=== PATIENT | female | born 1940 | race Caucasian/White ===

== ENCOUNTER 2018-04-18 11:30 | Inpatient (IN) ==
[2018-04-18 12:29] LABS: Albumin 4.1 G/DL (3.4-5.0); Bilirubin,Total 6.8 MG/DL (0.2-1.0); Calcium 9.1 MG/DL (8.5-10.1); Osmolality,Calculated 282.7 MOS/KG (273-304); Potassium 4.7 MMOL/L (3.5-5.1); Total Protein 7.2 G/DL (6.4-8.3)
[2018-04-18 14:12] LABS: Basophils # 0.1 10*3/uL (0.0-0.2); Basophils % 0.5 % (0.0-0.8); Eosinophils # 0.1 10*3/uL (0.0-0.87); Eosinophils % 0.9 % (0.00-10.9); Hemoglobin 6.5 GM/DL (12.0-16.0); Immature Granulocytes % 1.3 %; Immature Granulocytes Absolute 0.17 #; Lymphocytes # 1.8 10*3/uL (1.4-4.0); Lymphocytes % 13.1 % (21.3-54.2); Mean Corpuscular HGB Conc 38.5 GM/DL (32-36); Mean Corpuscular Hemoglobin 45 PG (27-34); Mean Corpuscular Volume 117.4 FL (87-102); Mean Platelet Volume 10.9 FL (9.6-12.0); Monocytes % 7.5 % (1.7-12.7); NRBC # 0.09 10*3/uL; Neutrophils # 10.4 10*3/uL (1.4-7.4); Neutrophils % 76.7 % (38.7-73.9); Platelet Count 396 T/CUMM (130-400); Red Blood Count 1.44 MC/CUMM (3.8-5.5); Red Cell Distribution Width 27.6 % (9.3-17.3); White Blood Count 13.5 T/CUMM (4-12)
[2018-04-18 14:30] LABS: Hematocrit 16.9 VOL% (35.7-47.0)
[2018-04-18 14:52] LABS: INR 0.9
[2018-04-18] MEDS ORDERED: SODIUM CHLORIDE 0.9% 1,000 ML IV PRN (15:06)
[2018-04-18] MEDS ORDERED: ACETAMINOPHEN 325 MG TABLET PO PRN (15:07)
[2018-04-18] MEDS ORDERED: ONDANSETRON 4 MG/2 ML VIAL IV PRN (15:07)
[2018-04-18] MEDS ORDERED: LACTULOSE 20 GM/30 ML UDCUP PO PRN (15:07)
[2018-04-18] MEDS ORDERED: DEXTROSE 50% 25 GM/50 ML VIAL IV PRN (15:09)
[2018-04-18] MEDS ORDERED: GLUCAGON 1 MG VIAL IM PRN (15:09)
[2018-04-18 15:18] LABS: % Iron Saturation 31.6 % (18-50)
[2018-04-18 15:21] LABS: Folate 14.1 NG/ML (5.4-24.0)
[2018-04-18] MEDS ORDERED: methylPREDNISolone SOD SUC 125 MG/2 ML VIAL IV ONE (17:31)
[2018-04-18 19:09] LABS: Haptoglobin 12.9 MG/DL (30-200)
[2018-04-18] MEDS ORDERED: ACETAMINOPHEN 500 MG TABLET PO ONE (20:30)
[2018-04-18] MEDS ORDERED: diphenhydrAMINE CAP 25 MG CAPSULE PO ONE (20:30)
[2018-04-18] MEDS ORDERED: IMMUNE GLOBULIN 10% 40 GM in PREMIX 1 EACH IV ONE (21:00)
[2018-04-18 21:12] LABS: Anisocytosis Slight; Macrocytosis 3+; Platelet Estimate Normal
[2018-04-18] MEDS: INSULIN LISPRO 100 UNIT/ML SUBCUT SCH ×2 (22:20→22:25)
[2018-04-18] MEDS: POLYETHYLENE GLYCOL POWDER 17 GM PACK PO SCH ×2 (22:27→23:15)
[2018-04-19] MEDS: LEVOTHYROXINE 88 MCG TABLET PO SCH (06:42)
[2018-04-19] MEDS: INSULIN LISPRO 100 UNIT/ML SUBCUT SCH ×4 (08:49→21:13)
[2018-04-19] MEDS: methylPREDNISolone SOD SUC 125 MG/2 ML VIAL IV SCH ×2 (09:04→20:28)
[2018-04-19 09:33] LABS: Hematocrit 25.4 VOL% (35.7-47.0); Immature Granulocytes Absolute 0.12 #
[2018-04-19 09:43] LABS: Basophils % 0.3 % (0.0-0.8); Lymphocytes # 0.7 10*3/uL (1.4-4.0); Mean Corpuscular HGB Conc 35.4 GM/DL (32-36); Mean Corpuscular Hemoglobin 37 PG (27-34); Mean Corpuscular Volume 104.5 FL (87-102); Mean Platelet Volume 11.2 FL (9.6-12.0); Monocytes # 0.5 10*3/uL (0.11-0.8); NRBC # 0.09 10*3/uL; Neutrophils # 10.3 10*3/uL (1.4-7.4); Neutrophils % 88.7 % (38.7-73.9); Platelet Count 341 T/CUMM (130-400); White Blood Count 11.6 T/CUMM (4-12)
[2018-04-19 09:45] LABS: Red Blood Count 2.43 MC/CUMM (3.8-5.5)
[2018-04-19 09:53] LABS: Hypochromasia 1+; Macrocytosis Slight; Platelet Estimate Adequate; Polychromasia Slight
[2018-04-19 10:01] LABS: Calcium 8.3 MG/DL (8.5-10.1); Osmolality,Calculated 284.8 MOS/KG (273-304); Potassium 4.4 MMOL/L (3.5-5.1)
[2018-04-19 10:04] LABS: Albumin 3.7 G/DL (3.4-5.0); Bilirubin,Direct 0.46 MG/DL (0.0-0.20); Bilirubin,Indirect 6.3 MG/DL (0.0-1.0); Bilirubin,Total 6.8 MG/DL (0.2-1.0); Total Protein 8.5 G/DL (6.4-8.3)
[2018-04-19] MEDS: ASPIRIN EC 81 MG TABLET PO SCH (14:07)
[2018-04-19] MEDS: POLYETHYLENE GLYCOL POWDER 17 GM PACK PO SCH ×3 (14:08→21:13)
[2018-04-20] MEDS: LEVOTHYROXINE 88 MCG TABLET PO SCH (05:45)
[2018-04-20 06:52] LABS: Basophils % 0.1 % (0.0-0.8); Hematocrit 23.6 VOL% (35.7-47.0); Hemoglobin 8.5 GM/DL (12.0-16.0); Immature Granulocytes % 0.8 %; Immature Granulocytes Absolute 0.09 #; Lymphocytes # 0.5 10*3/uL (1.4-4.0); Lymphocytes % 4.1 % (21.3-54.2); Mean Corpuscular Hemoglobin 37 PG (27-34); Mean Platelet Volume 11.5 FL (9.6-12.0); Monocytes # 0.4 10*3/uL (0.11-0.8); Monocytes % 3.1 % (1.7-12.7); Neutrophils # 10.2 10*3/uL (1.4-7.4); Neutrophils % 91.9 % (38.7-73.9); Platelet Count 330 T/CUMM (130-400); Red Blood Count 2.27 MC/CUMM (3.8-5.5); Red Cell Distribution Width 24.8 % (9.3-17.3); White Blood Count 11.1 T/CUMM (4-12)
[2018-04-20 07:15] LABS: Band Neutrophils 1 % (0-10); Hypochromasia 1+; Lymphocytes 2 % (20-55); Macrocytosis Slight; Platelet Estimate Adequate; Segmented Neutrophils 96 % (50-85); Total Cells Counted 100
[2018-04-20 07:21] LABS: Alanine Aminotransferase 19 U/L (13-56); Albumin 3.3 G/DL (3.4-5.0); Alkaline Phosphatase 74 U/L (45-117); Aspartate Amino Transferase 9 U/L (0-37); Blood Urea Nitrogen 34 MG/DL (7-18); Calcium 8.2 MG/DL (8.5-10.1); Glucose 257 MG/DL (74-106); Haptoglobin < 8.0 MG/DL (30-200); Osmolality,Calculated 289.8 MOS/KG (273-304); Potassium 4.8 MMOL/L (3.5-5.1); Sodium 137 MMOL/L (136-145); Total Protein 7.3 G/DL (6.4-8.3)
[2018-04-20] MEDS ORDERED: IMMUNE GLOBULIN 10% 20 GM, IMMUNE GLOBULIN 10% 10 GM in PREMIX 1 EACH IV ONE (08:11)
[2018-04-20] MEDS ORDERED: FAMOTIDINE 20 MG/2 ML VIAL IV ONE (08:12)
[2018-04-20] MEDS ORDERED: diphenhydrAMINE 50 MG/1 ML VIAL IV ONE (08:12)
[2018-04-20] MEDS ORDERED: ACETAMINOPHEN 500 MG TABLET PO ONE (08:12)
[2018-04-20] MEDS ORDERED: riTUXimab 750 MG in SODIUM CHLORIDE 0.9% 675 ML IV ONE (09:00)
[2018-04-20] MEDS: ASPIRIN EC 81 MG TABLET PO SCH (09:55)
[2018-04-20] MEDS: methylPREDNISolone SOD SUC 125 MG/2 ML VIAL IV SCH ×2 (09:55→21:52)
[2018-04-20] MEDS: INSULIN LISPRO 100 UNIT/ML SUBCUT SCH ×4 (09:55→21:56)
[2018-04-20] MEDS: POLYETHYLENE GLYCOL POWDER 17 GM PACK PO SCH ×3 (10:52→21:58)
[2018-04-20] MEDS: GLIMEPIRIDE 4 MG TABLET PO SCH (17:20)
[2018-04-21 04:46] LABS: Hematocrit 24.9 VOL% (35.7-47.0); Hemoglobin 8.3 GM/DL (12.0-16.0); Immature Granulocytes % 0.5 %; Immature Granulocytes Absolute 0.05 #; Lymphocytes # 0.3 10*3/uL (1.4-4.0); Lymphocytes % 2.8 % (21.3-54.2); Mean Corpuscular HGB Conc 33.3 GM/DL (32-36); Mean Corpuscular Hemoglobin 33 PG (27-34); Mean Corpuscular Volume 99.2 FL (87-102); Mean Platelet Volume 11.1 FL (9.6-12.0); Monocytes # 0.2 10*3/uL (0.11-0.8); Monocytes % 1.5 % (1.7-12.7); NRBC # 0.05 10*3/uL; Neutrophils # 9.4 10*3/uL (1.4-7.4); Neutrophils % 95.2 % (38.7-73.9); Platelet Count 306 T/CUMM (130-400); Red Blood Count 2.51 MC/CUMM (3.8-5.5); Red Cell Distribution Width 22.1 % (9.3-17.3); White Blood Count 9.9 T/CUMM (4-12)
[2018-04-21 05:28] LABS: Alanine Aminotransferase 19 U/L (13-56); Albumin 3.3 G/DL (3.4-5.0); Alkaline Phosphatase 69 U/L (45-117); Aspartate Amino Transferase 11 U/L (0-37); Blood Urea Nitrogen 36 MG/DL (7-18); Glucose 204 MG/DL (74-106); Haptoglobin < 8.0 MG/DL (30-200); Osmolality,Calculated 290.5 MOS/KG (273-304); Potassium 4.5 MMOL/L (3.5-5.1); Sodium 139 MMOL/L (136-145); Total Protein 7.7 G/DL (6.4-8.3)
[2018-04-21] MEDS: LEVOTHYROXINE 88 MCG TABLET PO SCH (05:45)
[2018-04-21 05:59] LABS: Lymphocytes 3 % (20-55); Nucleated Red Blood Cells 3 (0-5); Segmented Neutrophils 94 % (50-85); Total Cells Counted 100
[2018-04-21 06:00] LABS: Anisocytosis 3+; Hypochromasia 2+; Macrocytosis 2+; Microcytosis 1+; Platelet Estimate Normal
[2018-04-21 06:01] LABS: Polychromasia 1+
[2018-04-21] MEDS: INSULIN LISPRO 100 UNIT/ML SUBCUT SCH ×4 (08:43→20:39)
[2018-04-21] MEDS: methylPREDNISolone SOD SUC 125 MG/2 ML VIAL IV SCH (08:44)
[2018-04-21] MEDS: POLYETHYLENE GLYCOL POWDER 17 GM PACK PO SCH ×3 (08:44→20:42)
[2018-04-21] MEDS: ASPIRIN EC 81 MG TABLET PO SCH (08:44)
[2018-04-21] MEDS: GLIMEPIRIDE 4 MG TABLET PO SCH (08:44)
[2018-04-21] MEDS ORDERED: SODIUM CHLORIDE 0.9% 1,000 ML IV PRN (09:42)
[2018-04-21] MEDS: predniSONE 20 MG TABLET PO SCH (10:03)
[2018-04-21] MEDS: INSULIN GLARGINE 100 UNIT/ML SUBCUT SCH (12:33)
[2018-04-22] MEDS: LEVOTHYROXINE 88 MCG TABLET PO SCH (06:03)
[2018-04-22 08:47] LABS: Eosinophils % 0.2 % (0.00-10.9); Hematocrit 33.6 VOL% (35.7-47.0); Immature Granulocytes % 0.6 %; Immature Granulocytes Absolute 0.06 #; Lymphocytes # 1.2 10*3/uL (1.4-4.0); Lymphocytes % 11.4 % (21.3-54.2); Mean Corpuscular HGB Conc 33.6 GM/DL (32-36); Mean Corpuscular Hemoglobin 32 PG (27-34); Mean Corpuscular Volume 95.7 FL (87-102); Monocytes # 1.4 10*3/uL (0.11-0.8); Monocytes % 13.2 % (1.7-12.7); NRBC # 0.05 10*3/uL; Neutrophils # 7.7 10*3/uL (1.4-7.4); Neutrophils % 74.6 % (38.7-73.9); Platelet Count 249 T/CUMM (130-400); Red Cell Distribution Width 20.4 % (9.3-17.3); White Blood Count 10.3 T/CUMM (4-12)
[2018-04-22 08:49] LABS: Red Blood Count 3.51 MC/CUMM (3.8-5.5)
[2018-04-22 08:50] LABS: Hemoglobin 11.3 GM/DL (12.0-16.0)
[2018-04-22] MEDS: INSULIN GLARGINE 100 UNIT/ML SUBCUT SCH (09:13)
[2018-04-22] MEDS: predniSONE 20 MG TABLET PO SCH (09:13)
[2018-04-22] MEDS: ASPIRIN EC 81 MG TABLET PO SCH (09:14)
[2018-04-22] MEDS: INSULIN LISPRO 100 UNIT/ML SUBCUT SCH (09:18)
[2018-04-22] MEDS: POLYETHYLENE GLYCOL POWDER 17 GM PACK PO SCH (09:18)
[2018-04-22 15:59] VITALS: BP 178/75
== END 2018-04-22 14:35 | disposition home or self-care (01) | DRG 809 ==
LOC: N.EDINP 11:30 → N.ED 11:30 → N.5E 19:34 → N.4E 04-19 11:00 → SUATTDRO 04-19 11:20
PROVIDERS: ADMIT Internal Medicine; ATTEND Internal Medicine